=== PATIENT | male | born 1940 | race Caucasian/White ===

== ENCOUNTER → 2019-10-17 15:15 | Outpatient (CLI) | payer MEDICARE, OTHER, SELFPAY ==
[2019-10-17 16:36] LABS: INR 2.53 (0.9-1.1); Prothrombin Time 24.5 seconds (9.4-11.8)
[2019-10-17 16:45] LABS: Chloride 105 mmol/L (98-107)
[2019-10-17 16:46] LABS: Potassium 5.3 mmoL/L (3.5-5.1); Sodium 141 mmol/L (136-145)
[2019-10-17 16:48] LABS: Alanine Aminotransferase 26 U/L (12-78); Aspartate Amino Transferase 34 U/L (17-59); Blood Urea Nitrogen 14 mg/dl (9-20); Estimated Glomerular Filt Rate 94 ml/min (>60); GFR (African American) 113 ML/MIN (>60)
[2019-10-17 16:49] LABS: Albumin Level 4.2 g/dl (3.5-5.0); Albumin/Globulin Ratio 1.5 (1.1-1.8); Alkaline Phosphatase 62 U/L (38-126); Anion Gap 10.3 mEq/L (5-15); Bilirubin,Total 0.8 mg/dl (0.2-1.3); Carbon Dioxide 31 mmol/L (22.0-30.0); Globulin 2.8 g/dL (1.3-3.2); Glucose 93 mg/dl (74-100)
[2019-10-19 09:21] LABS: PSA, Free 0.15 ng/mL; Prostate Specific Ag 0.5 ng/mL (0.0-4.0)
== END ==
PROVIDERS: Visit Provider Family Medicine
DX: I48.91 Unspecified atrial fibrillation (principal); R53.82 Chronic fatigue, unspecified; C67.9 Malignant neoplasm of bladder, unspecified; I25.10 Atherosclerotic heart disease of native coronary artery without angina pectoris; E78.5 Hyperlipidemia, unspecified; R31.0 Gross hematuria
CPT/HCPCS: 36415; 80053; 84153; 84154; 85610

== ENCOUNTER → 2020-01-03 17:59 | Outpatient (CLI) | payer MEDICARE, OTHER, SELFPAY | PROVIDERS: Visit Provider Family Medicine | DX: R31.9 Hematuria, unspecified (principal) | CPT/HCPCS: 87086 ==

== ENCOUNTER → 2020-09-10 13:47 | Outpatient (CLI) | payer MEDICARE, OTHER, SELFPAY ==
[2020-09-10 14:28] LABS: Basophils # 0.1 K/mm3 (0-0.2); Basophils % 0.7 % (0.1-2.0); Eosinophils # 0.1 K/mm3 (0.0-0.4); Eosinophils % 1.1 % (0.1-12.0); Hemoglobin 13.4 g/dL (14.1-18.0); Lymphocytes # 1.6 K/mm3 (0.7-4.5); Lymphocytes % 21.7 % (10-50); Mean Corpuscular HGB Conc 31.9 g/dL (31.8-35.4); Mean Corpuscular Hemoglobin 25.2 pg (27.0-31.2); Mean Corpuscular Volume 79.1 fl (80-94); Monocytes # 0.5 K/mm3 (0.1-1.0); Monocytes % 7.1 % (1.7-9.3); Neutrophils % 69.4 % (37.0-80.0); Platelet Count 271 K/mm3 (142-424); Red Blood Count 5.31 M/mm3 (4.60-6.20); Red Cell Distribution Width 16.4 % (11.5-17.5); White Blood Count 7.2 K/mm3 (4.8-10.8)
[2020-09-10 14:29] LABS: Alanine Aminotransferase 27 U/L (12-78); Albumin Level 4.5 g/dl (3.5-5.0); Albumin/Globulin Ratio 1.6 (1.1-1.8); Alkaline Phosphatase 64 U/L (38-126); Anion Gap 13.2 mEq/L (5-15); Aspartate Amino Transferase 36 U/L (17-59); Bilirubin,Total 0.9 mg/dl (0.2-1.3); Blood Urea Nitrogen 16 mg/dl (9-20); Calcium 9.1 mg/dl (8.4-10.2); Carbon Dioxide 28 mmol/L (22.0-30.0); Chloride 105 mmol/L (98-107); Chol/HDL Ratio 2.3 (1-3.5); Cholesterol 139 mg/dl (140-200); Estimated Glomerular Filt Rate 93 ml/min (>60); GFR (African American) 113 ML/MIN (>60); Globulin 2.8 g/dL (1.3-3.2); Glucose 85 mg/dl (74-100); HDL Cholesterol 61 mg/dl (40-60); Potassium 5.2 mmoL/L (3.5-5.1); Sodium 141 mmol/L (136-145); Total Protein,Serum 7.3 g/dl (6.3-8.2); Triglycerides 88 mg/dl (30-150); VLDL Cholesterol 18 mg/dL (0-40)
[2020-09-10 14:41] LABS: Direct LDL Cholesterol 57.11 mg/dL (100-129)
[2020-09-10 14:47] LABS: T4 (Thyroxine) 7.3 ug/dl (5.53-11.0)
[2020-09-10 14:50] LABS: 25-OH Vitamin D, Total 34.4 ng/mL (30-100)
[2020-09-10 15:01] LABS: Prostate Specific Ag Screen 0.4 ng/ml (0.0-4.0)
[2020-09-10 15:19] LABS: Vitamin B12 505 pg/mL (239-931)
[2020-09-10 16:11] LABS: Hemoglobin A1C 6.3 % (4.0-6.0)
[2020-09-17 05:50] LABS: Testosterone, Total, LC/MS 394.2 ng/dL (264.0-916.0); Testosterone,Free 3.6 pg/mL (6.6-18.1)
== END ==
PROVIDERS: Visit Provider Family Medicine
DX: R53.83 Other fatigue (principal); Z12.5 Encounter for screening for malignant neoplasm of prostate; E78.5 Hyperlipidemia, unspecified; E55.9 Vitamin D deficiency, unspecified; E11.9 Type 2 diabetes mellitus without complications; Z79.4 Long term (current) use of insulin
CPT/HCPCS: 80053; 80061; 82306; 82607; 83036; 84402; 84403; 84436; 84443; 85025; G0103

== ENCOUNTER → 2020-12-16 13:25 | Outpatient (CLI) | payer MEDICARE, OTHER, SELFPAY ==
--- NOTE | 2020-12-16 13:27 | US_ITS ---
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 Indications Claudication: Bilaterally History of Smoking CLAUDICATION Risk Factors CAD Hyperlipidemia History of Smoking Pressures/Indices Right Indices Left Indices Brachial 169.00 mmHg Brachial 153.00 mmHg Low Thigh 166.00 mmHg 0.98 Low Thigh 183.00 mmHg 1.08 Calf 255.00 mmHg 0.00 Calf 255.00 mmHg 0.00 Ankle(PT) 255.00 mmHg 0.00 Ankle(PT) 255.00 mmHg 0.00 Ankle(DP) 255.00 mmHg 0.00 Ankle(DP) 255.00 mmHg 0.00 Digit 136.00 mmHg 0.80 Digit 122.00 mmHg 0.72 Findings RT LULÚ:N/C LT LULÚ:N/C RT TBI:0.80 LT TBI:0.72 DAMPANED WAVEFORMS AT ALL LEVELS NORMAL PULSES BILATERAL Conclusion RT LULÚ:N/C LT LULÚ:N/C RT TBI:0.80 LT TBI:0.72 DAMPANED WAVEFORMS AT ALL LEVELS NORMAL PULSES BILATERAL 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 Electronically signed by : Oliver Bucio MD 12/16/2020 16:43:24
== END ==
PROVIDERS: PCP Family Medicine; Visit Provider Family Medicine
DX: I73.9 Peripheral vascular disease, unspecified (principal)
CPT/HCPCS: 93923

== ENCOUNTER → 2021-05-19 08:53 | Outpatient (CLI) | payer MEDICARE, OTHER, SELFPAY ==
[2021-05-19 09:30] LABS: Anion Gap 9.4 mEq/L (5-15); Blood Urea Nitrogen 14 mg/dl (9-20); Calcium 9.1 mg/dl (8.4-10.2); Carbon Dioxide 31 mmol/L (22.0-30.0); Chloride 102 mmol/L (98-107); Estimated Glomerular Filt Rate 81 ml/min (>60); GFR (African American) 98 ML/MIN (>60); Glucose 104 mg/dl (74-100); Potassium 4.4 mmoL/L (3.5-5.1); Sodium 138 mmol/L (136-145)
== END ==
PROVIDERS: PCP Family Medicine; Visit Provider Family Medicine
DX: Z01.818 Encounter for other preprocedural examination (principal)
CPT/HCPCS: 36415; 80048

== ENCOUNTER → 2021-05-19 09:15 | Outpatient (CLI) | payer MEDICARE, OTHER, SELFPAY ==
--- NOTE | 2021-05-19 09:24 | CT_ITS ---
FINAL REPORT CLINICAL HISTORY: PVD,CLAUDICATION FINDINGS: Post contrast axial imaging of the aorta and bilateral lower extremity was obtained and reviewed. This study was performed with techniques to keep radiation doses as low as reasonably achievable (ALARA). Individualized dose reduction techniques using automated exposure control or adjustment of mA and/or kV according to the patient's size were employed. There is scarring at the lung bases. The liver parenchyma is homogeneous. Calcified gallstones are seen in the dependent portion of the gallbladder. The spleen, pancreas, and adrenals appear unremarkable. The right kidney is unremarkable. There is moderate left hydronephrosis and proximal left hydroureter. There is thickening of the mucosa of the mid left ureter. This segment of mucosal thickening measures approximately 4.5 cm in craniocaudal dimension. This is well-seen on images 61 through 69 of series 2. No stone is identified. There are bilateral inguinal hernias. Hernia on the right contains a portion of urinary bladder. Hernia on the left contains a loop of small bowel. 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 Finding is well-seen on image #122 of series 402. The SMA is patent. The REILLY is diminutive. There is dense calcification at the origins of the renal arteries bilaterally. There appears to be at least 50% stenosis at the origins of the renal arteries bilaterally. Retroaortic left renal vein is identified. RIGHT LEG: The right iliac artery is are adequately patent. There are a few small scattered calcifications in the right ORIENTATION AND MOBILITY INSTRUCTOR. There is vascular calcification in the right adductor canal. The stenosis measures less than 50%. The SFA is continuous with a patent popliteal artery and patent trifurcation. Three-vessel runoff is seen to the right foot. LEFT LEG: There is moderate calcification in the [employer] MOBILITY INSTRUCTOR with approximately 50% stenosis. There is moderate calcification in the distal SFA with approximately 50% stenosis. SFA is continuous with a patent popliteal artery and trifurcation. Three-vessel runoff is seen to the left foot. IMPRESSION: Gallstones. Unusual thickening of the urothelium in the mid left ureter. Finding is highly concerning for the possibility of transitional cell carcinoma. Retrograde ureterogram and urologic evaluation is recommended. There is associated moderate left hydronephrosis. 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 50% stenoses in the left common femoral artery and distal left SFA. Bilateral inguinal hernias containing bladder on the right and bowel on the left. Reviewed, Interpreted and Dictated by Saturnino Garcia MD Transcribed by Diana Yun Authenticated by Saturnino Garcia MD on 05/19/2021 02:18:[address] [facility]
== END ==
PROVIDERS: PCP Family Medicine; Visit Provider Family Medicine
DX: I70.213 Atherosclerosis of native arteries of extremities with intermittent claudication, bilateral legs (principal)
CPT/HCPCS: 36415; 75635; 80048; Q9967

== ENCOUNTER → 2021-07-05 16:58 | Outpatient (CLI) | payer MEDICARE, OTHER, SELFPAY ==
[2021-07-05 19:34] LABS: Basophils # 0.1 K/mm3 (0-0.2); Basophils % 0.7 % (0.1-2.0); Eosinophils # 0.2 K/mm3 (0.0-0.4); Eosinophils % 3.1 % (0.1-12.0); Hematocrit 35.3 % (42.0-52.0); Hemoglobin 11.1 g/dL (14.1-18.0); Lymphocytes # 1.9 K/mm3 (0.7-4.5); Lymphocytes % 26.8 % (10-50); Mean Corpuscular HGB Conc 31.3 g/dL (31.8-35.4); Mean Corpuscular Hemoglobin 25.2 pg (27.0-31.2); Mean Corpuscular Volume 80.5 fl (80-94); Mean Platelet Volume 8.3 fl (7.4-10.4); Monocytes # 0.6 K/mm3 (0.1-1.0); Monocytes % 8.5 % (1.7-9.3); Neutrophils # 4.2 K/mm3 (1.8-7.8); Neutrophils % 60.9 % (37.0-80.0); Platelet Count 332 K/mm3 (142-424); Red Blood Count 4.39 M/mm3 (4.60-6.20); Red Cell Distribution Width 17.4 % (11.5-17.5)
[2021-07-05 20:06] LABS: Alanine Aminotransferase 25 U/L (12-78); Albumin Level 4.7 g/dl (3.5-5.0); Albumin/Globulin Ratio 1.5 (1.1-1.8); Alkaline Phosphatase 66 U/L (38-126); Anion Gap 11.9 mEq/L (5-15); Aspartate Amino Transferase 31 U/L (17-59); Bilirubin,Total 0.7 mg/dl (0.2-1.3); Blood Urea Nitrogen 14 mg/dl (9-20); Calcium 9.5 mg/dl (8.4-10.2); Carbon Dioxide 29 mmol/L (22.0-30.0); Chloride 101 mmol/L (98-107); Chol/HDL Ratio 2.4 (1-3.5); Cholesterol 162 mg/dl (140-200); Estimated Glomerular Filt Rate 109 ml/min (>60); GFR (African American) 132 ML/MIN (>60); Globulin 3.1 g/dL (1.3-3.2); Glucose 89 mg/dl (74-100); HDL Cholesterol 68 mg/dl (40-60); Potassium 4.9 mmoL/L (3.5-5.1); Sodium 137 mmol/L (136-145); Total Protein,Serum 7.8 g/dl (6.3-8.2); Triglycerides 126 mg/dl (30-150); VLDL Cholesterol 25 mg/dL (0-40)
[2021-07-05 20:18] LABS: Direct LDL Cholesterol 65.88 mg/dL (100-129)
[2021-07-05 20:36] LABS: Thyroid Stimulating Hormone 1.95 uIU/mL (0.465-4.68)
[2021-07-05 21:11] LABS: Hemoglobin A1C 6.2 % (4.0-6.0)
== END ==
PROVIDERS: Visit Provider Family Medicine
DX: R31.0 Gross hematuria (principal); R42 Dizziness and giddiness; E11.9 Type 2 diabetes mellitus without complications; J18.9 Pneumonia, unspecified organism; E78.5 Hyperlipidemia, unspecified
CPT/HCPCS: 80053; 80061; 83036; 84443; 85025; 87086

== ENCOUNTER → 2021-09-16 10:27 | Outpatient (CLI) | payer MEDICARE, OTHER, SELFPAY ==
[2021-09-16 17:46] LABS: Basophils # 0.1 K/mm3 (0-0.2); Basophils % 0.8 % (0.1-2.0); Eosinophils # 0.2 K/mm3 (0.0-0.4); Eosinophils % 2.3 % (0.1-12.0); Hematocrit 31.3 % (42.0-52.0); Hemoglobin 10.1 g/dL (14.1-18.0); Lymphocytes # 1.1 K/mm3 (0.7-4.5); Lymphocytes % 12.1 % (10-50); Mean Corpuscular HGB Conc 32.2 g/dL (31.8-35.4); Mean Corpuscular Hemoglobin 31.2 pg (27.0-31.2); Mean Corpuscular Volume 96.7 fl (80-94); Mean Platelet Volume 8.6 fl (7.4-10.4); Monocytes # 0.8 K/mm3 (0.1-1.0); Monocytes % 9.1 % (1.7-9.3); Neutrophils # 6.9 K/mm3 (1.8-7.8); Neutrophils % 75.7 % (37.0-80.0); Platelet Count 262 K/mm3 (142-424); Red Blood Count 3.24 M/mm3 (4.60-6.20); White Blood Count 9.1 K/mm3 (4.8-10.8)
[2021-09-16 17:56] LABS: Alanine Aminotransferase 21 U/L (12-78); Albumin/Globulin Ratio 1.6 (1.1-1.8); Alkaline Phosphatase 81 U/L (38-126); Anion Gap 11.5 mEq/L (5-15); Aspartate Amino Transferase 34 U/L (17-59); Bilirubin,Total 0.4 mg/dl (0.2-1.3); Blood Urea Nitrogen 18 mg/dl (9-20); Calcium 9.3 mg/dl (8.4-10.2); Carbon Dioxide 29 mmol/L (22.0-30.0); Chloride 101 mmol/L (98-107); Estimated Glomerular Filt Rate 58 ml/min (>60); GFR (African American) 71 ML/MIN (>60); Globulin 2.5 g/dL (1.3-3.2); Glucose 105 mg/dl (74-100); Potassium 4.5 mmoL/L (3.5-5.1); Sodium 137 mmol/L (136-145); Total Protein,Serum 6.5 g/dl (6.3-8.2)
[2021-09-16 18:00] LABS: Red Cell Distribution Width 25.5 % (11.5-17.5)
== END ==
PROVIDERS: PCP Family Medicine; Visit Provider Family Medicine
DX: J18.9 Pneumonia, unspecified organism (principal); E78.5 Hyperlipidemia, unspecified; I10 Essential (primary) hypertension
CPT/HCPCS: 80053; 85025

== ENCOUNTER → 2021-10-18 07:36 | Outpatient (CLI) | payer MEDICARE, OTHER, SELFPAY ==
--- NOTE | 2021-10-18 07:37 | CA_ITS ---
FINAL REPORT TECHNIQUE: Grayscale, color Doppler and duplex Doppler ultrasound of the kidneys, aorta and renal arteries was performed. Multiple velocities were measured. 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 No evidence of hydronephrosis or mass. Right intrarenal RI: 0.66 Right renal artery velocity: 204 cm/sec. Right RAR (Renal artery-Aortic Ratio): 3.3 borderline. The left kidney has been removed. Note is made of gallstones in the gallbladder. IMPRESSION: Borderline stenosis. Consider catheter angiogram for further evaluation. Reviewed, Interpreted and Dictated by Owen Zaldivar III, MD Transcribed by Rhianna Quach Authenticated and [facility]
--- NOTE | 2021-10-18 07:37 | CA_ITS ---
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 Ht: 5 ft 8 in Wt: 160lbs BSA: 1.86 BP: 142/70 mmHg Indications: SOA,A-FIB,CABG,CHF,HX CHEMO,HLD,HTN,FATIGUE TDS 2D Dimensions LVOT 2.06 cm (M/F) 1.5-2.5 LA Volume 70.40 mL LA Volume Index 37.84 mL/m2 (M/F) 16-34 M-Mode Dimensions RVDd 3.34 cm (0.9-2.6) LA Diam 4.48 cm (1.9-4.0) LVDd 4.10 cm (3.5-5.7) Ao Diam 3.62 cm (2.0-3.7) LVDs 2.96 cm (3.5-5.7) IVSd 0.76 cm (0.6-1.1) PWd 0.99 cm (0.6-1.1) EF (Teich) 54.30% FS 27.80% EDV (Teich) 74.20 mL TAPSE 1.46 (<1.7) ESV (Teich) 33.90 mL LV Diastology E Decel Time 180.00 (160-240 msec) E/A Ratio 4.9 MED E' 6.60 (< 7 cm/sec) E'/MED E' Ratio 12.03 (>14) LAT E' 5.30 (<10 cm/sec) E/LAT E' Ratio 14.98 (>14) Aortic Valve LVOT Max 73.00 (70-110 cm/s) LVOT VTI 16.46 cm AoV Peak Edis. 304.00 (50-130 cm/s) AI PHT 1351.00 ms AO Peak GR. 37.20 mmHg AO Mean GR. 16.10 (<5 mmHg) AO VTI 46.29 (18-25 cm) NOAH (VTI) 1.19 (2.5-4.5 cm2) Mitral Valve MV E Max Edis. 79.00 (40-130 cm/s) MV A Velocity 16.00 (40-130 cm/s) E/A Ratio 4.84 MV Decel. Time 180.00 (160-240 ms) MV PHT 53.00 ms Pulmonary Valve PV Peak Velocity 47.00 (50-150 cm/s) Tricuspid Valve TR P. Velocity 226.00 cm/s RAP Estimate 10.00 mmHg RVSP 30.50 mmHg Left Ventricle Left atrium is mildly enlarged, left ventricle is normal size mild concentric left ventricular hypertrophy, estimated ejection fraction 55% with no regional wall motion abnormality, diastolic parameters are inconclusive. Right Ventricle Right atrium and right ventricle mildly enlarged with normal contractility. Aortic Valve Aortic valve is thickened and calcified with severe restriction in the leaflet mobility, the mean gradient across aortic valve is 22 mmHg, valve area is 0.9 cm up and severe aortic stenosis, there is mild aortic insufficiency. Mitral Valve Mitral valve has mitral annular calcification, there is no mitral stenosis, there is mild mitral regurgitation. Tricuspid Valve Tricuspid valve grossly normal, there is mild tricuspid regurgitation, tricuspid regurgitation jet velocity is inadequate for calculation of the right ventricular systolic pressure. Pulmonic Valve Pulmonic valve is poorly visualized. Great Vessels Aortic root is normal size. Pericardium No significant pericardial effusion noted. Inferior vena cava is poorly visualized. Conclusion 1. Biatrial enlargement, normal left ventricular size, mild concentric left ventricular hypertrophy, estimated ejection fraction 55% with no regional wall motion abnormality, diastolic parameters are inconclusive. 2. Mildly enlarged right ventricle with normal contractility. 3. Thickened and calcified aortic valve with severe aortic stenosis, valve area is 0.9 cm???, there is mild aortic insufficiency. 4. Mild mitral and tricuspid regurgitation. 5. No significant pericardial effusion. 6. Inferior vena cava is poorly visualized. Electronically signed by : Luis Daniel Barbosa MD 10/18/2021 12:56:52
== END ==
PROVIDERS: PCP Family Medicine; Visit Provider Nurse Practitioner Family
DX: I70.1 Atherosclerosis of renal artery (principal); R06.02 Shortness of breath
CPT/HCPCS: 93306; 93976

== ENCOUNTER → 2021-10-27 13:07 | Outpatient (CLI) | payer MEDICARE, OTHER, SELFPAY ==
[2021-10-27 14:02] LABS: Basophils # 0.1 K/mm3 (0-0.2); Basophils % 0.9 % (0.1-2.0); Eosinophils # 0.4 K/mm3 (0.0-0.4); Eosinophils % 5.8 % (0.1-12.0); Hematocrit 32.8 % (42.0-52.0); Hemoglobin 9.8 g/dL (14.1-18.0); Lymphocytes # 1.6 K/mm3 (0.7-4.5); Lymphocytes % 22.8 % (10-50); Mean Corpuscular HGB Conc 29.8 g/dL (31.8-35.4); Mean Corpuscular Hemoglobin 30.1 pg (27.0-31.2); Mean Corpuscular Volume 101.1 fl (80-94); Mean Platelet Volume 7.7 fl (7.4-10.4); Monocytes # 0.5 K/mm3 (0.1-1.0); Monocytes % 7.5 % (1.7-9.3); Neutrophils # 4.3 K/mm3 (1.8-7.8); Neutrophils % 63.1 % (37.0-80.0); Platelet Count 221 K/mm3 (142-424); Red Blood Count 3.24 M/mm3 (4.60-6.20); Red Cell Distribution Width 17.4 % (11.5-17.5); White Blood Count 6.8 K/mm3 (4.8-10.8)
[2021-10-27 14:56] LABS: Anion Gap 13.5 mEq/L (5-15); Blood Urea Nitrogen 26 mg/dl (9-20); Calcium 9.4 mg/dl (8.4-10.2); Carbon Dioxide 28 mmol/L (22.0-30.0); Chloride 99 mmol/L (98-107); Estimated Glomerular Filt Rate 53 ml/min (>60); GFR (African American) 64 ML/MIN (>60); Glucose 109 mg/dl (74-100); Potassium 4.5 mmoL/L (3.5-5.1); Sodium 136 mmol/L (136-145)
== END ==
PROVIDERS: PCP Family Medicine; Visit Provider Internal Medicine
DX: E78.2 Mixed hyperlipidemia (principal); I10 Essential (primary) hypertension; I25.10 Atherosclerotic heart disease of native coronary artery without angina pectoris; I48.20 Chronic atrial fibrillation, unspecified; I70.1 Atherosclerosis of renal artery; I73.9 Peripheral vascular disease, unspecified; I77.1 Stricture of artery; Z95.1 Presence of aortocoronary bypass graft; Z01.812 Encounter for preprocedural laboratory examination; Z20.822 Contact with and (suspected) exposure to COVID-19
CPT/HCPCS: 36415; 80048; 85025; C9803; U0003; U0005

== ENCOUNTER 2021-10-29 07:18 | Day surgery (SDC) | payer MEDICARE, OTHER, SELFPAY ==
[2021-10-29] VITALS (19 sets, daily range): BP systolic 105–158; BP diastolic 58–94; PULSE 55–93; RESP 18–20; TEMP 36.9; O2SAT 98–100; BMI 24.6
--- NOTE | 2021-10-29 07:26 | IR_ITS ---
APPROVED REPORT Patient Location: Outpatient PROCEDURES Pigtail catheter placed in the suprarenal abdominal aorta Suprarenal abdominal aortogram Catheter placement in the inferior renal abdominal aorta Infrarenal abdominal aortogram Bilateral selective renal angiogram Catheter placement in the left superficial femoral artery Left superficial femoral artery selective angiogram with unilateral runoff to the left foot INDICATION Abnormal CTA, Renal artery occlusion, Claudication, Chronic renal insufficiency Informed consent was obtained prior to the procedure. COMPLICATIONS NONE Estimated Blood Loss: LESS THAN 10 ML TECHNIQUE 1% lidocaine used anesthetize right groin the right coronary 6 via the Salinger technique and a 5 Upper Sorbian sheath was placed in the right femoral artery. A pigtail catheter was advanced to the suprarenal abdominal aorta where angiography was performed. The catheter was then repositioned in the infrarenal abdominal aorta where angiography was performed. It was noticed the left renal artery appeared to be occluded. A JR4 catheter was used to perform bilateral selective renal angiography. The catheter was then placed into the left superficial femoral artery under fluoroscopic guidance where selective left superficial femoral artery antegrade angiogram was performed with unilateral runoff to the left foot. At the end of the procedure there the apparatus was removed the patient was transferred to the postop in stable condition for sheath removal ANGIOGRAPHIC RESULTS Suprarenal abdominal aorta is widely patent with mild external calcification. The infrarenal abdominal aorta has a mild aneurysmal pouching on the left aspect. 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 It was later determined this was surgical ligation Bilateral common internal and external iliac arteries are widely patent and normal. Bilateral common femoral arteries are normal Left superficial femoral artery is widely patent as is the left popliteal artery. There is three-vessel runoff below the left knee IMPRESSION Peripheral artery disease as described above all of which is minor and nonflow limiting Nonvascular symptoms PLAN 1. Recommend evaluation for neurologic pain 2. Recommend MRI of the lumbosacral spine 3. Referral to neurology 4. Patient's pain could also be coming from postradiation with possible retroperitoneal fibrosis. An MRI should be able to determine if this is present 5. Referral to pain clinic Electronically signed by : Kendall Price MD 10/29/2021 12:31:12
[2021-10-29 13:17] LABS: CATHL Activated Clotting Time 400 SEC (74-125)
== END 2021-10-29 15:00 | disposition home or self-care (01) ==
LOC: CATHLAB 07:19
PROVIDERS: PCP Family Medicine; Visit Provider Internal Medicine
DX: E78.2 Mixed hyperlipidemia (principal); I11.0 Hypertensive heart disease with heart failure; I25.10 Atherosclerotic heart disease of native coronary artery without angina pectoris; I48.20 Chronic atrial fibrillation, unspecified; I70.1 Atherosclerosis of renal artery; I77.1 Stricture of artery; R93.429 Abnormal radiologic findings on diagnostic imaging of unspecified kidney; R93.5 Abnormal findings on diagnostic imaging of other abdominal regions, including retroperitoneum; Z95.1 Presence of aortocoronary bypass graft; I70.213 Atherosclerosis of native arteries of extremities with intermittent claudication, bilateral legs; Z79.01 Long term (current) use of anticoagulants; Z79.899 Other long term (current) drug therapy; I50.9 Heart failure, unspecified; I35.0 Nonrheumatic aortic (valve) stenosis
CPT/HCPCS: 36247; 36252; 75710; 85347; 99152; 99153; C1725; C1769; C1894; J1642; J1644; Q9966

== ENCOUNTER → 2021-12-02 12:34 | Outpatient (CLI) | payer MEDICARE, OTHER, SELFPAY ==
--- NOTE | 2021-12-02 12:44 | XR_ITS ---
FINAL REPORT CLINICAL HISTORY: cough with hemoptysis FINDINGS: 2 views of the chest were obtained . The heart is normal in size. Patient is status post median sternotomy. There is a right-sided chest port in place with the tip in the lower SVC. The mediastinum is within normal limits. There is bibasilar atelectasis or scarring. Lungs are otherwise clear. There is no pneumothorax. Osseous structures demonstrate degenerative changes of the thoracic spine. IMPRESSION: Basilar atelectasis or scarring. Reviewed, Interpreted and Dictated by Owen Zaldivar III, MD Transcribed by Swati Cui Authenticated and [facility]
[2021-12-02 20:51] LABS: Basophils # 0.1 K/mm3 (0-0.2); Basophils % 0.9 % (0.1-2.0); Eosinophils # 0.4 K/mm3 (0.0-0.4); Hematocrit 33.5 % (42.0-52.0); Hemoglobin 9.7 g/dL (14.1-18.0); Lymphocytes # 1.8 K/mm3 (0.7-4.5); Lymphocytes % 19.4 % (10-50); Mean Corpuscular HGB Conc 29.1 g/dL (31.8-35.4); Mean Corpuscular Hemoglobin 30.3 pg (27.0-31.2); Mean Corpuscular Volume 104.2 fl (80-94); Mean Platelet Volume 9.7 fl (7.4-10.4); Monocytes # 0.8 K/mm3 (0.1-1.0); Monocytes % 9.1 % (1.7-9.3); Neutrophils % 66.7 % (37.0-80.0); Platelet Count 293 K/mm3 (142-424); Red Blood Count 3.21 M/mm3 (4.60-6.20); Red Cell Distribution Width 16.5 % (11.5-17.5)
== END ==
PROVIDERS: PCP Family Medicine; Visit Provider Family Medicine
DX: I35.0 Nonrheumatic aortic (valve) stenosis (principal); J18.9 Pneumonia, unspecified organism
CPT/HCPCS: 36415; 71046; 85025

== ENCOUNTER → 2022-09-23 10:07 | Outpatient (CLI) | payer MEDICARE, OTHER, SELFPAY ==
[2022-09-23 18:16] LABS: Basophils % 0.4 % (0.1-2.0); Eosinophils # 0.4 K/mm3 (0.0-0.4); Eosinophils % 4.4 % (0.1-12.0); Hematocrit 37.3 % (42.0-52.0); Hemoglobin 11.6 g/dL (14.1-18.0); Lymphocytes # 1.6 K/mm3 (0.7-4.5); Lymphocytes % 19.8 % (10-50); Mean Corpuscular HGB Conc 31.1 g/dL (31.8-35.4); Mean Corpuscular Volume 93.4 fl (80-94); Monocytes # 0.7 K/mm3 (0.1-1.0); Neutrophils # 5.3 K/mm3 (1.8-7.8); Neutrophils % 66.5 % (37.0-80.0); Platelet Count 238 K/mm3 (142-424); Red Cell Distribution Width 16.2 % (11.5-17.5); White Blood Count 7.9 K/mm3 (4.8-10.8)
[2022-09-23 18:24] LABS: Hemoglobin A1C 5.5 % (4.0-6.0)
[2022-09-23 18:41] LABS: Alanine Aminotransferase 26 U/L (12-78); Albumin Level 4.6 g/dl (3.5-5.0); Albumin/Globulin Ratio 1.6 (1.1-1.8); Alkaline Phosphatase 84 U/L (38-126); Anion Gap 17.7 mEq/L (5-15); Aspartate Amino Transferase 44 U/L (17-59); Bilirubin,Total 0.6 mg/dl (0.2-1.3); Blood Urea Nitrogen 25 mg/dl (9-20); Calcium 9.3 mg/dl (8.4-10.2); Carbon Dioxide 27 mmol/L (22.0-30.0); Chloride 96 mmol/L (98-107); Cholesterol 135 mg/dl (140-200); Estimated Glomerular Filt Rate 53 ml/min (>60); GFR (African American) 64 ML/MIN (>60); Globulin 2.8 g/dL (1.3-3.2); Glucose 92 mg/dl (74-100); HDL Cholesterol 69 mg/dl (40-60); Potassium 4.7 mmoL/L (3.5-5.1); Sodium 136 mmol/L (136-145); Total Protein,Serum 7.4 g/dl (6.3-8.2); Triglycerides 102 mg/dl (30-150); VLDL Cholesterol 20 mg/dL (0-40)
[2022-09-23 18:52] LABS: Direct LDL Cholesterol 48.01 mg/dL (100-129)
[2022-09-23 19:12] LABS: Thyroid Stimulating Hormone 1.61 uIU/mL (0.465-4.68)
== END ==
PROVIDERS: PCP Family Medicine; Visit Provider Family Medicine
DX: E78.5 Hyperlipidemia, unspecified (principal); I70.1 Atherosclerosis of renal artery; R53.83 Other fatigue; C67.9 Malignant neoplasm of bladder, unspecified; E11.9 Type 2 diabetes mellitus without complications
CPT/HCPCS: 80053; 80061; 83036; 84443; 85025

== ENCOUNTER → 2022-10-05 09:01 | Outpatient (CLI) | payer MEDICARE, OTHER, SELFPAY ==
--- NOTE | 2022-10-05 09:10 | CT_ITS ---
FINAL REPORT TECHNIQUE: Thin section axial CT images with coronal and sagittal reformats were performed through the neck. This study was performed with techniques to keep radiation doses as low as reasonably achievable (ALARA). Individualized dose reduction techniques using automated exposure control or adjustment of mA and/or kV according to the patient''s size were employed. CLINICAL HISTORY: fullness right lateral neck COMPARISON: None FINDINGS: Right jugular port is present. No adenopathy or mass lesion is present . Salivary glands are normal. Larynx is unremarkable. Thyroid gland is unremarkable. There are diffuse degenerative changes in the cervical spine. Bilateral carotid artery calcifications are noted, left greater than right. There is an 11 mm nodule in the right lung apex with no definite calcification. Moderate emphysema and scarring is noted in the lung apices IMPRESSION: 11 mm right lung nodule. Recommend PET/CT. Reviewed, Interpreted and Dictated by Owen Zaldivar III, MD Transcribed by Preethi Moreira Authenticated and [facility]
== END ==
PROVIDERS: PCP Family Medicine; Visit Provider Family Medicine
DX: R22.1 Localized swelling, mass and lump, neck (principal)
CPT/HCPCS: 70490